=== PATIENT | male | born 1960 | race Caucasian/White ===

== ENCOUNTER 2017-02-18 12:17 | Observation (INO) | payer BC ==
[2017-02-18] VITALS (7 sets, daily range): BP systolic 100–134; BP diastolic 58–66; PULSE 57–85; RESP 16–22; TEMP 97.8–98; O2SAT 96–98
[~2017-02-18] VITALS: Ht 175.3 cm; Wt 77.3 kg
[2017-02-18] MEDS ORDERED: CIAL5TAB PO (12:28)
[2017-02-18] MEDS ORDERED: VENTAER INH (12:41)
[2017-02-18] MEDS ORDERED: ASPIRIN 325 MG TAB PO ONE (12:45)
[2017-02-18] MEDS ORDERED: SODIUM CHLORIDE 0.9% FLUSH 10 ML FLUSH IVF PRN (12:45)
--- NOTE | 2017-02-18 12:50 | PD ---
HPI Chief Complaint: Chest Pain Time Seen by Provider: 12:34 Travel History International Travel<30 days: No Contact w/Intl Traveler<30days: No Traveled to known affect area: No History of Present Illness HPI 56-year-old male with PMH of exercise-induced asthma presents to the ED for evaluation of 2 week history of intermittent left-sided chest pain. Described as sharp, onset gradual, resolves spontaneously. Currently rated 2/10. Patient states he had episode last night that was rated 6/10. He endorses accompanying shortness of breath. He states that he thought this might be heartburn and took a dose of Zantac with some improvement of his symptoms during the week. He can identify no alleviating or exacerbating factors. However he does note that he did have increased chest pain while working out in the gym a few days ago that resolved with rest. He states that he mostly lifts weights and does very little cardio. He describes his lifestyle as active. He denies nausea, vomiting, diaphoresis, palpitations. He denies recent history of cold or flu symptoms. He states that he had a negative heart catheter around 20 years ago. He denies cardiac history. He denies familial history of NV. He has never smoked. No treatment attempted at home. 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 He states that he's been taking Cialis daily for prostate problems for approximately 5 weeks. The patient lives in [place] full-time and has a vacation property here. PFSH Past Medical History Genitourinary: Yes (PROSTATE) Respiratory: Yes (UPPER RESPIRATORY DYSFUNCTION) Influenza Vaccination: No Past Surgical History Abdominal Surgery: Yes (DUAL INGUINAL HERNIA REPAIR X2) Other Surgery: Yes (R SHOULDER BACK OF NECK LIPOMAS REMOVED) Social History Alcohol Use: Yes (OCC) Tobacco Use: No Substance Use: No Allergies-Medications (Allergen,Severity, Reaction): Coded Allergies: Penicillins (Verified Allergy, Unknown, 02/18/17) Reported Meds & Prescriptions Reported Meds & Active Scripts Active Reported Ventolin Hfa 18 GM Inh (Albuterol Sulfate) 90 Mcg/Act Aer 2 Puff INH Q4H PRN Cialis (Tadalafil) 5 Mg Tab 5 Mg PO DAILY Do not exceed 1 dose/day. Review of Systems Except as stated in HPI: all other systems reviewed are Neg Physical Exam Narrative GENERAL: Well-nourished, well-developed white male in no acute distress. SKIN: Focused skin assessment warm/dry. HEAD: Normocephalic. EYES: No scleral icterus. No injection or drainage. NECK: Supple, trachea midline. No JVD or lymphadenopathy. CARDIOVASCULAR: Regular rate and rhythm without murmurs, gallops, or rubs. CHEST: Nontender throughout without deformity or crepitus. No retractions. RESPIRATORY: Breath sounds clear and equal bilaterally. No accessory muscle use. GASTROINTESTINAL: Abdomen soft, non-tender, nondistended. Active bowel sounds. MUSCULOSKELETAL: No cyanosis, or edema. BACK: Nontender without obvious deformity. No CVA tenderness. Data Data Last Documented VS Vital Signs Date Time Temp Pulse Resp B/P (MAP) Pulse Ox O2 Delivery O2 Flow Rate FiO2 02/18/17 12:35 81 19 134/65 (88) 98 Room Air 02/18/17 12:20 97.8 Orders Orders Electrocardiogram (02/18/17 12:34) Basic Metabolic Panel (Bmp) (02/18/17 12:34) Ckmb (Isoenzyme) Profile (02/18/17 12:34) Complete Blood Count With Diff (02/18/17 12:34) Magnesium (Mg) (02/18/17 12:34) Prothrombin Time / Inr (Pt) (02/18/17 12:34) Act Partial Throm Time (Ptt) (02/18/17 12:34) Troponin I (02/18/17 12:34) Chest, Single Ap (02/18/17 12:34) Ecg Monitoring (02/18/17 12:34) Bilateral Bp Monitoring (02/18/17 12:34) Iv Access Insert/Monitor (02/18/17 12:34) Oximetry (02/18/17 12:34) Oxygen Administration (02/18/17 12:34) Aspirin (Aspirin) (02/18/17 12:45) Sodium Chloride 0.9% Flush (Ns Flush) (02/18/17 12:45) Sodium Chlor 0.9% 1000 Ml Inj (Ns 1000 M (02/18/17 13:45) Ranitidine Liq (Zantac Liq) (02/18/17 14:00) Admit Order (Ed Use Only) (02/18/17 14:18) Labs Laboratory Tests Test 02/18/17 12:45 White Blood Count 5.8 TH/MM3 Red Blood Count 4.78 MIL/MM3 Hemoglobin 15.2 GM/DL Hematocrit 44.3 % Mean Corpuscular Volume 92.7 FL Mean Corpuscular Hemoglobin 31.8 PG Mean Corpuscular Hemoglobin Concent 34.3 % Red Cell Distribution Width 12.9 % Platelet Count 169 TH/MM3 Mean Platelet Volume 9.4 FL Neutrophils (%) (Auto) 65.3 % Lymphocytes (%) (Auto) 24.5 % Monocytes (%) (Auto) 7.4 % Eosinophils (%) (Auto) 2.5 % Basophils (%) (Auto) 0.3 % Neutrophils # (Auto) 3.8 TH/MM3 Lymphocytes # (Auto) 1.4 TH/MM3 Monocytes # (Auto) 0.4 TH/MM3 Eosinophils # (Auto) 0.1 TH/MM3 Basophils # (Auto) 0.0 TH/MM3 CBC Comment DIFF FINAL Differential Comment Prothrombin Time 10.7 SEC Prothromb Time International Ratio 1.1 RATIO Activated Partial Thromboplast Time 24.9 SEC Blood Urea Nitrogen 24 MG/DL Creatinine 0.83 MG/DL Random Glucose 88 MG/DL Calcium Level 9.1 MG/DL Magnesium Level 2.1 MG/DL Sodium Level 141 MEQ/L Potassium Level 4.1 MEQ/L Chloride Level 109 MEQ/L Carbon Dioxide Level 28.5 MEQ/L Anion Gap 4 MEQ/L Estimat Glomerular Filtration Rate 95 ML/MIN Total Creatine Kinase 98 U/L Troponin I LESS THAN 0.02 NG/ML MDM Medical Decision Making Medical Screen Exam Complete: Yes Emergency Medical Condition: Yes Differential Diagnosis Chest pain versus medication side effect versus GERD versus less likely ACS versus other Narrative Course 56-year-old male with PMH of exercise-induced asthma presents to the ED for evaluation of 2 week history of intermittent left-sided chest pain. Described as sharp, onset gradual, resolves spontaneously. Currently rated 2/10. Patient states he had episode last night that was rated 6/10. He endorses accompanying shortness of breath. He notes that the pain has come on with working out in the gym a few days ago. Resolved with rest. He states that he had a negative heart catheter around 20 years ago. He denies cardiac history. He denies familial history of NV. He has never smoked. 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 He states that he's been taking Cialis daily for prostate problems for approximately 5 weeks. The patient lives in [place] full-time and has a vacation property here. Vitals reviewed. On exam the patient is nontoxic-appearing. No appreciable M/R/G. No tenderness to palpation of the precordium. Chest CTAB. No lower extremity edema. IV was established. Patient was administered aspirin by mouth. EKG rate 69, sinus rhythm. FL interval 180, QRS 83, QTC 375 ms. Borderline LAD. No acute ST changes. Reviewed by Dr. Patiño. CXR: No acute cardiopulmonary disease per radiology read. Cardiac enzymes negative 1. No concerning abnormalities of the CBC. BUN 24. Creatinine normal. Patient was administered 1 L normal saline. I discussed the results of the workup with the patient as well as my recommendation for observation in the chest pain center. He is reluctantly agreeable to this. Please see chest pain center notes for disposition. Diane Suarez Feb 18, 2017 12:50
--- NOTE | 2017-02-18 13:14 | RADRPT ---
EXAM DATE/TIME: 02/18/2017 13:03 [facility] COMPARISON: No previous studies available for comparison. INDICATIONS : Left side chest pain for two weeks. Pain has gotten worse over the last couple of days. MEDICAL HISTORY : None. SURGICAL HISTORY : None. ENCOUNTER: Initial ACUITY: 2 weeks PAIN SCORE: 7/10 LOCATION: Left chest FINDINGS: A single view of the chest demonstrates the lungs to be symmetrically aerated without evidence of mas s, infiltrate or effusion. The cardiomediastinal contours are unremarkable. Osseous structures are intact. CONCLUSION: 1. No acute cardiopulmonary disease. Willy Chery MD on February 18, 2017 at 13:12 Board Certified Radiologist. This report was verified electronically.
[2017-02-18 13:23] LABS: AUTOMATED NEUTROPHIL # 3.8 TH/MM3 (1.8-7.7); BASOPHIL % 0.3 % (0.0-2.0); EOSINOPHIL # 0.1 TH/MM3 (0-0.4); EOSINOPHIL % 2.5 % (0.0-4.0); HEMATOCRIT 44.3 % (39.0-51.0); HEMOGLOBIN 15.2 GM/DL (13.0-17.0); LYMPH % 24.5 % (9.0-44.0); LYMPHOCYTE # 1.4 TH/MM3 (1.0-4.8); MEAN CELL VOLUME 92.7 FL (80.0-100.0); MEAN CORPUSCULAR HEMOGLOBIN 31.8 PG (27.0-34.0); MEAN CORPUSCULAR HGB CONC 34.3 % (32.0-36.0); MEAN PLATELET VOLUME 9.4 FL (7.0-11.0); MONO % 7.4 % (0.0-8.0); MONOCYTE # 0.4 TH/MM3 (0-0.9); NEUT % 65.3 % (16.0-70.0); PLATELET COUNT 169 TH/MM3 (150-450); RED BLOOD COUNT 4.78 MIL/MM3 (4.50-5.90); RED CELL DISTRIBUTION WIDTH 12.9 % (11.6-17.2); WHITE BLOOD COUNT 5.8 TH/MM3 (4.0-11.0)
[2017-02-18 13:32] LABS: INTERNATIONAL NORMALIZED RATIO 1.1 RATIO; PROTHROMBIN TIME - PATIENT 10.7 SEC (9.8-11.6)
[2017-02-18 13:37] LABS: BICARBONATE 28.5 MEQ/L (21.0-32.0); BLOOD UREA NITROGEN 24 MG/DL (7-18); CALCIUM 9.1 MG/DL (8.5-10.1); CHLORIDE 109 MEQ/L (98-107); CREATININE 0.83 MG/DL (0.60-1.30); GLOMERULAR FILTRATION RATE 95 ML/MIN (>89); GLUCOSE,RANDOM 88 MG/DL (74-106); MAGNESIUM 2.1 MG/DL (1.5-2.5); SODIUM (NA) 141 MEQ/L (136-145)
[2017-02-18 13:41] LABS: TROPONIN I LESS THAN 0.02 NG/ML (0.02-0.05)
[2017-02-18] MEDS ORDERED: SODIUM CHLOR 0.9% 1000 ML INJ 1,000 ML IV ONE (13:45)
[2017-02-18] MEDS ORDERED: RANITIDINE HCL SYRUP 150 MG/10 ML UDC PO ONE (14:00)
--- NOTE | 2017-02-18 14:41 | HHI.HP ---
HPI Primary Care Physician Non-Staff Chief Complaint Chest pain History of Present Illness This is a 56-year-old male that presents to the ED via private vehicle with a complaint of one month of intermittent left-sided chest discomfort. He describes as a dull pain. Mild to moderate. The discomfort primarily has been occurring while doing nothing but he states that last week he was able to reproduce the discomfort while lifting weights at the gym. Symptoms would last between 5 minutes to one half hour. He has been short of breath. Today he felt a little lightheaded with it. No nausea or diaphoresis. Denies history of heart disease. States he had a cardiac catheterization 15 years ago that was normal and had a stress test 10 years ago while in [place] and was also normal. Labs taken last March revealed a little bit of an elevation of his lipid panel but no prescription at time. Denies recent illness. Denies fevers or chills. Denies calf pain or swelling. Review of Systems General: Patient denies fevers, chills recent, and recent travel HEENT: Patient denies headache, sore throat, difficulty swallowing. Cardiovascular: Has the chest discomfort as mentioned above. Denies sensation of heart beating rapidly or irregularly. No syncope. Denies diaphoresis. Respiratory: He has been short of breath. Denies shortness of breath or inspirational chest discomfort. Denies coughing wheezing or hemoptysis. GI: Patient denies nausea, vomiting, diarrhea, abdominal pain, bloody stools. Musculoskeletal: Patient denies joint pain or edema. Denies calf pain or edema. Neurovascular: Patient denies numbness, tingling, weakness in extremities. Denies headache. Endocrine: Denies polyuria and polydipsia. Hematologic: Denies easy bruising. Skin: Denies rash or itching. Past Family Social History Allergies: Coded Allergies: Penicillins (Verified Allergy, Unknown, 02/18/17) Past Medical History BPH. Denies hypertension, hyperlipidemia, diabetes, and CAD. Past Surgical History Bilateral knee meniscal repair. Bilateral inguinal hernia repair. Lipomas removed. Reported Medications Reported Meds & Active Scripts Active Reported Ventolin Hfa 18 GM Inh (Albuterol Sulfate) 90 Mcg/Act Aer 2 Puff INH Q4H PRN Cialis (Tadalafil) 5 Mg Tab 5 Mg PO DAILY Do not exceed 1 dose/day. Active Ordered Medications Current Medications Medications (Trade) Dose Ordered Sig/Etelvina Route Start Time Stop Time Status Last Admin (NS Flush) 2 ml UNSCH PRN IVF 02/18/17 12:45 Sodium Chloride 1,000 ml @ 999 mls/hr BOLUS ONCE IV 02/18/17 13:45 02/18/17 14:45 02/18/17 13:50 Family History Denies family history of CAD. Social History Patient has been a lifetime nonsmoker. Averages about a glass of wine per evening. Denies illicit drugs. 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 He is . Physical Exam Vital Signs Vital Signs Date Time Temp Pulse Resp B/P (MAP) Pulse Ox O2 Delivery O2 Flow Rate FiO2 02/18/17 12:35 81 19 134/65 (88) 98 Room Air 02/18/17 12:35 85 19 132/62 (85) 97 Room Air 02/18/17 12:35 81 19 132/62 (85) 98 Room Air 134/65 (88) 02/18/17 12:35 98 Room Air 02/18/17 12:33 84 19 97 Room Air 02/18/17 12:20 97.8 77 22 118/64 (82) 97 Room Air Physical Exam GENERAL: This is a well-nourished, well-developed patient, in no apparent distress. Patient speaks in clear complete sentences. Patient is pleasant. HEENT: Head is atraumatic and normocephalic. Neck is supple without lymphadenopathy and trachea is midline. No JVD or carotid bruits. CARDIOVASCULAR: Regular rate and rhythm without murmurs, gallops, or rubs. RESPIRATORY: Clear to auscultation. Breath sounds equal bilaterally. No wheezes , rales, or rhonchi. Left chest wall is tender more so on lateral aspect reproducing the discomfort he has been having. No use of accessory muscles. GASTROINTESTINAL: Abdomen is nontender, nondistended. Abdomen soft. No obvious pulsatile mass or bruit. No CVA tenderness. Strong femoral pulses bilaterally. Normal bowel sounds in all quadrants. MUSCULOSKELETAL: Patient is moving upper and lower extremities freely. No calf tenderness or edema, no Homans sign. Strong pulses in upper and lower extremities. NEUROLOGICAL: Patient is alert and oriented. Cranial nerves 2-12 are grossly intact. No focal deficits and speech is clear. SKIN: No rash and turgor is normal. Laboratory Laboratory Tests Test 02/18/17 12:45 White Blood Count 5.8 Red Blood Count 4.78 Hemoglobin 15.2 Hematocrit 44.3 Mean Corpuscular Volume 92.7 Mean Corpuscular Hemoglobin 31.8 Mean Corpuscular Hemoglobin Concent 34.3 Red Cell Distribution Width 12.9 Platelet Count 169 Mean Platelet Volume 9.4 Neutrophils (%) (Auto) 65.3 Lymphocytes (%) (Auto) 24.5 Monocytes (%) (Auto) 7.4 Eosinophils (%) (Auto) 2.5 Basophils (%) (Auto) 0.3 Neutrophils # (Auto) 3.8 Lymphocytes # (Auto) 1.4 Monocytes # (Auto) 0.4 Eosinophils # (Auto) 0.1 Basophils # (Auto) 0.0 CBC Comment DIFF FINAL Differential Comment Prothrombin Time 10.7 Prothromb Time International Ratio 1.1 Activated Partial Thromboplast Time 24.9 Blood Urea Nitrogen 24 Creatinine 0.83 Random Glucose 88 Calcium Level 9.1 Magnesium Level 2.1 Sodium Level 141 Potassium Level 4.1 Chloride Level 109 Carbon Dioxide Level 28.5 Anion Gap 4 Estimat Glomerular Filtration Rate 95 Total Creatine Kinase 98 Troponin I LESS THAN 0.02 Result Diagram: 02/18/17 1245 02/18/17 1245 Imaging Last 48 hours Impressions Chest X-Ray 02/18/17 1234 Signed Impressions: Service Date/Time: Saturday, February 18, 2017 13:03 - CONCLUSION: 1. No acute cardiopulmonary disease. Willy Chery MD Course EKGs: Initial EKG is sinus rhythm without significant ST segment depressions or elevations. There is baseline artifact. Caprini VTE Risk Assessment Caprini VTE Risk Assessment: No/Low Risk (score <= 1) Caprini Risk Assessment Model Point Value = 1 Point Value = 2 Point Value = 3 Point Value = 5 Age 41-60 Minor surgery BMI > 25 kg/m2 Swollen legs Varicose veins or History of unexplained or recurrent spontaneous Oral contraceptives or hormone replacement Sepsis (< 1 month) Serious lung disease, including pneumonia (< 1 month) Abnormal pulmonary function Acute myocardial infarction Congestive heart failure (< 1 month) History of inflammatory bowel disease Medical patient at bed rest Age 61-74 Arthroscopic surgery Major open surgery (> 45 min) Laparoscopic surgery (> 45 min) Malignancy Confined to bed (> 72 hours) Immobilizing plaster cast Central venous access Age >= 75 History of VTE Family history of VTE Factor V Leiden Prothrombin [id number] Lupus anticoagulant Anticardiolipin antibodies Elevated serum homocysteine Heparin-induced thrombocytopenia Other congenital or acquired thrombophilia Stroke (< 1 month) Elective arthroplasty Hip, pelvis, or leg fracture Acute spinal cord injury (< 1 month) Prophylaxis Regimen Total Risk Factor Score Risk Level Prophylaxis Regimen 0-1 Low Early ambulation 2 Moderate Order ONE of the following: *Sequential Compression Device (SCD) *Heparin 5000 units SQ BID 3-4 Higher Order ONE of the following medications: *Heparin 5000 units SQ TID *Enoxaparin/Lovenox 40 mg SQ daily (WT < 150 kg, CrCl > 30 mL/min) *Enoxaparin/Lovenox 30 mg SQ daily (WT < 150 kg, CrCl > 10-29 mL/min) *Enoxaparin/Lovenox 30 mg SQ BID (WT < 150 kg, CrCl > 30 mL/min) AND/OR *Sequential Compression Device (SCD) 5 or more Highest Order ONE of the following medications: *Heparin 5000 units SQ TID (Preferred with Epidurals) *Enoxaparin/Lovenox 40 mg SQ daily (WT < 150 kg, CrCl > 30 mL/min) *Enoxaparin/Lovenox 30 mg SQ daily (WT < 150 kg, CrCl > 10-29 mL/min) *Enoxaparin/Lovenox 30 mg SQ BID (WT < 150 kg, CrCl > 30 mL/min) AND *Sequential Compression Device (SCD) Assessment and Plan Assessment and Plan * Chest pain: Patient is going to have serial cardiac enzymes and EKGs for ruling out purposes in the chest pain center. He will be seen by Dr. Cas Yuen of cardiology and the chest pain center. He will have a stress test in the morning if he rules out. Likely a Jamaal protocol ETT. Patient would discharged to home if the stress test was nonischemic with instructions to follow-up with PCP and return to ED for interval issues. Patient is stable at this time. He is agreeable to this plan. George Dill Feb 18, 2017 14:41
[2017-02-18] MEDS ORDERED: ONDANSETRON HCL 4 MG/2 ML VIAL IV PUSH PRN (14:45)
[2017-02-18] MEDS ORDERED: ACETAMINOPHEN 500 MG CPLT PO PRN (14:45)
[2017-02-18] MEDS ORDERED: KETOROLAC TROMETHAMINE 30 MG/ML (IVP) VIAL IVP ONE (14:45)
[2017-02-18] MEDS ORDERED: ACETAMINOPHEN/HYDROcodone 325 MG/7.5 MG TAB PO PRN (14:45)
[2017-02-18] MEDS ORDERED: ALPRAZolam 0.25 MG TAB PO PRN (14:45)
[2017-02-18] MEDS: PANTOPRAZOLE SOD 40 MG DELAYED RELEASE TAB PO SCH (15:06)
[2017-02-18 16:21] LABS: TROPONIN I LESS THAN 0.02 NG/ML (0.02-0.05)
[2017-02-18 19:50] LABS: TROPONIN I LESS THAN 0.02 NG/ML (0.02-0.05)
[2017-02-19 00:02] VITALS: PULSE 66
[2017-02-19 01:30] VITALS: BP 95/54; PULSE 66; RESP 18; TEMP 97.8; O2SAT 96
[2017-02-19 03:15] VITALS: PULSE 66
[2017-02-19 04:26] VITALS: BP 105/60; PULSE 64; RESP 18; TEMP 97.8; O2SAT 93
[2017-02-19 06:52] VITALS: PULSE 57
--- NOTE | 2017-02-19 07:05 | EKG ---
Date Performed: 02/18/2017 Time Performed: 15:58:28 PTAGE: 56 years EKG: SINUS BRADYCARDIA BORDERLINE ECG Since PREVIOUS TRACING , no significant change noted PREVIOUS TRACIN02/18/2017 12.37 DOCTOR: Hanh Rocha Interpretating Date/Time 02/19/2017 07:05:08
--- NOTE | 2017-02-19 07:08 | EKG ---
Date Performed: 02/18/2017 Time Performed: 20:23:50 PTAGE: 56 years EKG: SINUS BRADYCARDIA BORDERLINE ECG Since PREVIOUS TRACING , no significant change noted PREVIOUS TRACIN02/18/2017 15.58 DOCTOR: Hanh Rocha Interpretating Date/Time 02/19/2017 07:06:49
[2017-02-19 07:56] VITALS: BP 105/60; PULSE 67; RESP 18; TEMP 97.7; O2SAT 96
[2017-02-19] MEDS: PANTOPRAZOLE SOD 40 MG DELAYED RELEASE TAB PO SCH (08:00)
--- NOTE | 2017-02-19 08:02 | PD.CARD.PN ---
Subjective Subjective Remarks Left inframammary chest discomfort, characterized as dull discomfort, no radiation, duration 5 minutes, no associated symptoms last evening. No precipitating or relieving factors. Otherwise, no complaints overnight. Currently chest pain free. Objective Medications Current Medications Medications (Trade) Dose Ordered Sig/Etelvina Route Start Time Stop Time Status Last Admin (NS Flush) 2 ml UNSCH PRN IVF 02/18/17 12:45 (Tylenol) 500 mg Q4H PRN PO 02/18/17 14:45 ([place] 7.5-325 Mg) 1 tab Q4H PRN PO 02/18/17 14:45 (Zofran Inj) 4 mg Q6H PRN IV PUSH 02/18/17 14:45 (Protonix) 40 mg DAILY PO 02/18/17 14:45 02/18/17 15:06 (Aspirin) 325 mg DAILY PO 02/19/17 09:00 (Xanax) 0.25 mg Q8H PRN PO 02/18/17 14:45 Vital Signs / I&O Vital Signs Date Time Temp Pulse Resp B/P (MAP) Pulse Ox O2 Delivery O2 Flow Rate FiO2 02/19/17 06:52 57 02/19/17 04:26 97.8 64 18 105/60 (75) 93 02/19/17 03:15 66 02/19/17 01:30 97.8 66 18 95/54 (68) 96 02/19/17 00:02 66 02/18/17 22:56 98 02/18/17 21:21 97.9 60 18 100/58 (72) 96 02/18/17 20:30 57 02/18/17 16:11 18 02/18/17 16:01 98.0 69 18 116/66 (83) 97 02/18/17 15:37 02/18/17 15:11 72 16 104/58 (73) 97 Room Air 02/18/17 12:35 81 19 134/65 (88) 98 Room Air 02/18/17 12:35 85 19 132/62 (85) 97 Room Air 02/18/17 12:35 81 19 132/62 (85) 98 Room Air 134/65 (88) 02/18/17 12:35 98 Room Air 02/18/17 12:33 84 19 97 Room Air 02/18/17 12:20 97.8 77 22 118/64 (82) 97 Room Air I/O 02/18/17 02/18/17 02/18/17 02/19/17 02/19/17 02/19/17 07:00 15:00 23:00 07:00 15:00 23:00 # Voids 1 Physical Exam GENERAL: Alert WN, WD, NAD, pleasant, male HEAD: NC, AT CV: RRR, without murmur, rub, gallop, no JVD, S1-S2 no S3-S4. Chest wall nontender with palpation. RESP: Clear lungs throughout bilateral, no crackles, wheeze, rhonchi, symmetrical chest rise, nonlabored, able to speak in full sentences MS: Normal tone 4 extremities, full range of motion PSYCH: A+O 3, pleasant affect, appropriate speech, mood, insight and judgment SKIN: Normal turgor, normal texture Laboratory Laboratory Tests Test 02/18/17 12:45 02/18/17 15:41 02/18/17 18:30 White Blood Count 5.8 TH/MM3 Red Blood Count 4.78 MIL/MM3 Hemoglobin 15.2 GM/DL Hematocrit 44.3 % Mean Corpuscular Volume 92.7 FL Mean Corpuscular Hemoglobin 31.8 PG Mean Corpuscular Hemoglobin Concent 34.3 % Red Cell Distribution Width 12.9 % Platelet Count 169 TH/MM3 Mean Platelet Volume 9.4 FL Neutrophils (%) (Auto) 65.3 % Lymphocytes (%) (Auto) 24.5 % Monocytes (%) (Auto) 7.4 % Eosinophils (%) (Auto) 2.5 % Basophils (%) (Auto) 0.3 % Neutrophils # (Auto) 3.8 TH/MM3 Lymphocytes # (Auto) 1.4 TH/MM3 Monocytes # (Auto) 0.4 TH/MM3 Eosinophils # (Auto) 0.1 TH/MM3 Basophils # (Auto) 0.0 TH/MM3 CBC Comment DIFF FINAL Differential Comment Prothrombin Time 10.7 SEC Prothromb Time International Ratio 1.1 RATIO Activated Partial Thromboplast Time 24.9 SEC Blood Urea Nitrogen 24 MG/DL Creatinine 0.83 MG/DL Random Glucose 88 MG/DL Calcium Level 9.1 MG/DL Magnesium Level 2.1 MG/DL Sodium Level 141 MEQ/L Potassium Level 4.1 MEQ/L Chloride Level 109 MEQ/L Carbon Dioxide Level 28.5 MEQ/L Anion Gap 4 MEQ/L Estimat Glomerular Filtration Rate 95 ML/MIN Total Creatine Kinase 98 U/L 70 U/L 78 U/L Troponin I LESS THAN 0.02 NG/ML LESS THAN 0.02 NG/ML LESS THAN 0.02 NG/ML Imaging Last 24 hours Impressions Chest X-Ray 02/18/17 1234 Signed Impressions: Service Date/Time: Saturday, February 18, 2017 13:03 - CONCLUSION: 1. No acute cardiopulmonary disease. Willy Chery MD Assessment and Plan Assessment and Plan #1 Chest pain-ruled out with serial EKGs and cardiac enzymes. Previously seen by Dr. Cas Yuen. Proceed with exercise stress testing. If unremarkable and without signs of ischemia, plan would be discharge with follow up with PCP. Patient agreeable to plan of care. Michelle Lewis Feb 19, 2017 08:02
[2017-02-19] MEDS ORDERED: RESP: ALBUTEROL 2.5 MG/3 ML NEB (PRN) NEB (08:15)
[2017-02-19] MEDS ORDERED: ASPIRIN 325 MG TAB PO SCH (09:00)
--- NOTE | 2017-02-19 09:43 | HHI.DCPOC ---
Discharge Care Plan Diagnosis: (1) Atypical chest pain Goals to Promote Your Health * To prevent worsening of your condition and complications * To maintain your health at the optimal level Directions to Meet Your Goals Take your medications as prescribed Follow your dietary instruction Follow activity as directed Keep your appointments as scheduled Take your immunizations and boosters as scheduled If your symptoms worsen call your PCP, if no PCP go to Urgent Care Center or Emergency Room Smoking is Dangerous to Your Health. Avoid second hand smoke Call the 24-hour hour crisis hotline for domestic abuse at Michelle Lewis Feb 19, 2017 09:43
--- NOTE | 2017-02-19 10:19 | HHI.DS ---
Discharge Summary Admission Date Feb 18, 2017 at 14:21 Discharge Date: Feb 19, 2017 Admitting Diagnosis chest pain (1) Atypical chest pain Diagnosis: Principal ICD Codes: R07.89 - Other chest pain Procedures Last Impressions Chest X-Ray 02/18/17 1234 Signed Impressions: Service Date/Time: Saturday, February 18, 2017 13:03 - CONCLUSION: 1. No acute cardiopulmonary disease. Willy Chery MD Brief History 56 year old male presents to ER for further evaluation of intermittent 1 month chest pain. Location left side chest pain. Described as sharp. Intervals vary from few minutes to hours. No radiation of discomfort. Discomfort occurs at rest and exertional. No associated symptoms. No known precipitating or relieving factors. Come in yesterday for further evaluation due to x2 days ago discomfort accompanied with dyspnea which was a new associated symptom. CBC/BMP: 02/18/17 1245 02/18/17 1245 Significant Findings Laboratory Tests Test 02/18/17 12:45 02/18/17 15:41 02/18/17 18:30 Blood Urea Nitrogen 24 MG/DL (7-18) Chloride Level 109 MEQ/L (98-107) Anion Gap 4 MEQ/L (5-15) Troponin I LESS THAN 0.02 NG/ML LESS THAN 0.02 NG/ML LESS THAN 0.02 NG/ML Pt Condition on Discharge: Good Discharge Disposition: Discharge Home Discharge Instructions DIET: Follow Instructions for: Heart Healthy Diet Activities you can perform: Regular-No Restrictions Additional Information Completed exercise stress test, walked 12:15 minutes. No signs of ischemia to suggest discomfort cardiac in nature. Discharge home with follow up with PCP. Michelle Lewis Feb 19, 2017 10:19
--- NOTE | 2017-02-19 12:11 | TR ---
Date Performed: 02/19/2017 Time Performed: 09:14:48 DOCTOR: Hanh Rocha DRUG LIST: CLINICAL HISTORY: REASON FOR TEST: REASON FOR ENDING: OBSERVATION: CONCLUSION: Jamaal protocol completed. Stopped sec to exceeding target heart rate and leg fatigue . Maximum ZC=374 Target HR Achieved=88.0% Maximum IK=776/78 Total Exercise Time=12:17. Rare PVC stage 1. No reprod chest discomfort. No st t segment changes to sugg ischemia. Normal bp response. Great e xercise tolerance. Recovery quick and unremarkable. COMMENTS:
--- NOTE | 2017-02-19 12:14 | EKG ---
Date Performed: 02/18/2017 Time Performed: 12:37:44 PTAGE: 56 years EKG: Sinus rhythm BORDERLINE LEFT AXIS DEVIATION BORDERLINE ECG NO PREVIOUS TRACING DOCTOR: Hanh Rocha Interpretating Date/Time 02/19/2017 12:12:23
== END 2017-02-19 10:59 | disposition home or self-care (01) ==
LOC: NEPC 12:17 → NEDA 14:21 → NEPFCDU 15:30
PROVIDERS: ADMIT Internal Medicine Cardiovascular Disease; ATTEND Internal Medicine Cardiovascular Disease
DX: R07.89 Other chest pain (principal); R06.02 Shortness of breath; R42 Dizziness and giddiness; J45.990 Exercise induced bronchospasm
CPT/HCPCS: 71010; 80048; 82550; 83735; 84484; 85025; 85610; 85730; 93005; 93017; 96361; 96374; 99285; G0378; J1885; J7030